=== PATIENT | female | born 1960 ===

== ENCOUNTER 2024-11-16 18:27 | Emergency (ER) | payer OTHER, SELFPAY ==
[2024-11-16] VITALS (18 sets, daily range): BP systolic 137–174; BP diastolic 56–80; PULSE 67–79; RESP 13–26; TEMP 36.6; O2SAT 96–100; BMI 29.0
--- NOTE | 2024-11-16 18:28 | EKG_ITS ---
[address] [address] Test Date: 2024-11-16 Pat Name: Xin Couch Department: Room: Gender: Female [employer] Security Architect: DAYNA : 1960 Requested By: Order Number: [id number] Reading MD: Ian Singletary Measurements Intervals [place] Rate: 71 P: 36 NC: 132 QRS: 66 QRSD: 90 T: 62 QT: 410 QTc: 445 Interpretive Statements Normal sinus rhythm Electronically Signed On 11-17-2024 10:19:31 PDT by Ian Singletary
--- NOTE | 2024-11-16 18:28 | DI.RAD.S_ITS ---
PROCEDURE: XR CHEST 1V INDICATIONS: Chest Pain TECHNIQUE: One view of the chest was acquired. COMPARISON: [facility], CR, XR CHEST 2 VIEWS, 01/26/2024, 9:31. FINDINGS: Surgical changes and devices: None. Lungs and pleura: Lungs are clear. No pleural effusions or pneumothorax. Mediastinum: Mediastinal contours appear normal. Heart size is normal. Bones and chest wall: No suspicious bony lesions. Overlying soft tissues appear unremarkable. IMPRESSION: No acute pulmonary process. Dictated by: Savanna Yoo M.D. on 11/16/2024 at 19:01 Approved by: Savanna Yoo M.D. on 11/16/2024 at 19:01
[2024-11-16 18:52] LABS: Add Manual Diff / Slide Review NO; Hematocrit 33.8 % (36-46); Hemoglobin 11.5 g/dL (12.0-16.0); Lymphocytes Absolute Auto 2800 /uL (1100-4500); Mean Corpuscular HGB Conc 34.2 % (30-36); Mean Corpuscular Hemoglobin 31.9 PG (26-34); Mean Corpuscular Volume 93.4 fL (80-100); Platelet Count 234 X10^3/uL (150-400)
[2024-11-16 18:59] LABS: INR 0.9 (0.9-1.3); Prothrombin Time 10.7 SECONDS (9.4-12.5)
[2024-11-16 19:02] LABS: PTT Partial Thromboplastin Tim 19 SECONDS (25.1-36.5)
[2024-11-16 19:04] LABS: Alanine Aminotransferase 17 IU/L (<35); Albumin 4.6 g/dL (3.5-5.0); Albumin Globulin Ratio 1.4 (1.0-2.8); Alkaline Phosphatase 92 U/L (38-126); Blood Urea Nitrogen 12 mg/dL (7-17); Calcium 8.7 mg/dL (8.4-10.2); Carbon Dioxide 25 mmol/L (22-32); Chloride 104 mmol/L (98-107); Creatine Kinase 77 U/L (30-135); Estimated Glomerular Filt Rate > 60 mL/min (>60); Globulin 3.3 g/dL (1.7-4.1); Glucose 105 mg/dL (70-99); HEMOLYSIS < 15 (0-50); Lipase 155 U/L (23-300); Magnesium 1.9 mg/dL (1.6-2.3); Potassium 3.5 mmol/L (3.4-5.1); Sodium 139 mmol/L (137-145); Total Protein 7.9 g/dL (6.3-8.2)
[2024-11-16 19:15] LABS: NT-proBNP (BNP-Adult 18+) 252 pg/mL (<125); Troponin I < 0.012 ng/mL (0.01-0.034)
--- NOTE | 2024-11-16 19:37 | ED.NAVMDI ---
HPI - Nausea/Vomiting/Diarrhea General Chief complaint: Nausea/Vomiting/Diarrhea Stated complaint: N/V + syncope Time Seen by Provider: 11/16/24 19:36 Source: patient and EMS Mode of arrival: EMS History of Present Illness HPI Narrative: Patient is a 64-year-old female no significant past medical history comes into the ED via EMS for evaluation of syncope. She states that she ate a crab sandwich at 5:00 p.m. started developing some abdominal pain nausea and vomiting. According to medics patient did receive Zofran on route, she stated that she felt like her blood sugar was low however blood sugar was 97, was also complaining of some blurry vision as well as shaking but at time of evaluation patient stating that she just feels a little weak and is complaining of some cramping abdominal pain no focal deficits NIH of 0, she denies any shortness of breath chest pain or any other symptoms during the episode. Related Data Previous Rx's ?Medication ?Instructions ?Recorded calcium carbonate (Tums) 1,000 mg (5 x 200 mg calcium (500 03/15/17 mg)) PO TID #30 tabs cholecalciferol (vitamin D3) 50 1 tab PO QDAY #30 tabs 03/15/17 mcg (2,000 unit) tablet (Vitamin D3) magnesium oxide 400 mg (241.3 mg 400 mg PO QDAY #30 tabs 03/15/17 magnesium) tablet ondansetron 4 mg disintegrating 4 mg PO BID 1 week #14 tabs 11/16/24 tablet Allergies Allergy/AdvReac Type Severity Reaction Status Date / Time Influenza Virus Vaccines Allergy Unknown Verified 11/16/24 18:28 (INFLUENZA VIRUS VACCINES) Opioids - Morphine Analogues Allergy Unknown Verified 11/16/24 18:28 (OPIOIDS - MORPHINE ANALOGUES) Sulfa (Sulfonamide Allergy Unknown Verified 11/16/24 18:28 Antibiotics) (SULFA (SULFONAMIDE ANTIBIOTICS)) Review of Systems Review of Systems Narrative: General: Denies fever, chills, weight loss HEENT: Denies headache, eye drainage, eye irritation, head trauma, sore throat, voice change Cardiovascular: Denies any chest pain, palpitations, tachycardia Respiratory: Denies any shortness of breath, cough, wheeze, stridor GI/: Denies any abdominal pain, nausea, vomiting, diarrhea, bright red blood per rectum, melanotic stools, urinary frequency, urinary retention, dysuria, hematuria MSK: Denies any joint pain, muscle pains, swelling Skin: Denies any rashes, lesions, discoloration Neuro: Denies any headache, lightheadedness, dizziness, fainting, weakness Psych: Denies SI/HI Patient History Social History Smoking Status: Never smoker Smoking Status: Never smoker Exam Narrative Exam Narrative: General: Cooperative, well-developed, not in acute distress HEENT: Normocephalic, atraumatic, PERRLA, normal sclera, eyelids normal Neck: Active full range of motion, atraumatic Chest: Normal to inspection, negative crepitus, no overlying erythema ecchymosis Respiratory: Normal respiratory effort, not in acute respiratory distress, clear to auscultation bilaterally negative cough, wheeze, tachypnea, rhonchi, rales Cardiology: Regular rate rhythm negative gallop, murmur, rubs GI/: No tenderness to palpation, soft, non rigid, normal to inspection, exam deferred MSK: Full active range of motion in all 4 extremities, atraumatic, no tenderness to palpation of any bony prominences Skin: No rashes or lesions noted Neuro: Alert awake oriented x3, moves all 4 extremities spontaneously, cranial nerves intact, able to answer all questions appropriately follows commands appropriately Psych: Cooperative, negative suicidal or homicidal ideations Initial Vital Signs Initial Vital Signs: Vital Signs Pulse Rate 77 11/16/24 18:24 Pulse Oximetry 100 11/16/24 18:24 Course Orders Ordered: ED Orders 11/16/24 18:28 XR chest 1V Stat EKG-12 Lead Stat 11/16/24 18:45 Complete Blood Count AUTO DIFF Stat Comprehensive Metabolic Panel Stat Lipase Stat Magnesium Stat NT-proBNP (BNP-Adult 18+) Stat PTT Partial Thromboplastin [place] Stat Prothrombin Time INR Stat Troponin & CK Cardiac Panel Stat 11/16/24 19:43 CT abdomen pelvis w con Stat 11/16/24 21:00 Urinalysis and Microscopic Stat Discontinued Medications Aspirin (Aspirin 81 Mg Chew Tab) 324 mg PO NOW ONE Stop: 11/16/24 18:29 Last Admin: 11/16/24 19:19 Dose: Not Given Documented By: ANTONY Famotidine (Famotidine 20 Mg/2 Ml Vial) 20 mg IV NOW ONE Stop: 11/16/24 19:44 Last Admin: 11/16/24 19:55 Dose: 20 mg Documented By: ANTONY Sodium Chloride (Normal Saline 0.9%) 1,000 mls @ 1,000 mls/hr IV BOLUS ONE Stop: 11/16/24 20:42 Last Infusion: 11/16/24 20:55 Dose: Infused Documented By: Admin: 11/16/24 19:54 Dose: 1,000 mls/hr Documented By: ANTONY Ondansetron HCl (Ondansetron 4 Mg/2 Ml Inj) 4 mg IV NOW ONE Stop: 11/16/24 19:44 Last Admin: 11/16/24 19:54 Dose: 4 mg Documented By: ANTONY Vital Signs Vital signs: Vital Signs - 8 hr 11/16/24 18:24 11/16/24 18:25 11/16/24 18:25 Temperature Pulse Rate 77 77 Respiratory Rate Blood Pressure 174/80 H Pulse Oximetry 100 99 Oxygen Delivery Method 11/16/24 18:28 11/16/24 18:30 11/16/24 18:30 Temperature 97.9 F Pulse Rate 78 70 Respiratory Rate 18 25 H Blood Pressure 174/80 H 153/70 H Pulse Oximetry 100 100 Oxygen Delivery Method Room Air 11/16/24 18:45 11/16/24 18:45 11/16/24 19:00 Temperature Pulse Rate 71 Respiratory Rate 24 Blood Pressure 151/67 H 145/69 H Pulse Oximetry 98 Oxygen Delivery Method 11/16/24 19:00 11/16/24 19:15 11/16/24 19:15 Temperature Pulse Rate 72 68 Respiratory Rate 22 20 Blood Pressure 141/70 H Pulse Oximetry 97 99 Oxygen Delivery Method Room Air 11/16/24 19:30 11/16/24 19:30 11/16/24 19:46 Temperature Pulse Rate 69 Respiratory Rate 20 Blood Pressure 137/69 155/69 H Pulse Oximetry 98 Oxygen Delivery Method 11/16/24 19:46 11/16/24 20:00 11/16/24 20:00 Temperature Pulse Rate 69 67 Respiratory Rate 21 20 Blood Pressure 150/71 H Pulse Oximetry 98 100 Oxygen Delivery Method Room Air 11/16/24 20:20 11/16/24 20:20 Temperature Pulse Rate 73 Respiratory Rate 23 Blood Pressure 152/67 H Pulse Oximetry 99 Oxygen Delivery Method Room Air MDM - Nausea/Vomiting/Diarrhea Differential Diagnosis Differential diagnosis: Likely traveler's diarrhea, food poisoning, gastroenteritis, drug-induced nausea and vomiting, dehydration and other (ACS, pneumonia, electrolyte abnormality) Lab Data 11/16/24 18:45 11/16/24 18:45 Labs: Lab Results 11/16/24 11/16/24 Range/Units 18:45 21:00 WBC 5.3 (4.5-11.0) X10^3/uL RBC 3.62 L (4.0-5.2) X10^6/uL Hgb 11.5 L (12.0-16.0) g/dL Hct 33.8 L (36-46) % MCV 93.4 (80-100) fL MCH 31.9 (26-34) PG MCHC 34.2 (30-36) % RDW 14.8 (11.6-14.8) % Plt Count 234 (150-400) X10^3/uL Neut % (Auto) 39.6 L (50-75) % Lymph % (Auto) 53.0 H (25-40) % Hendry % (Auto) 5.9 (3-14) % Eos % (Auto) 1.0 L (2-4) % Baso % (Auto) 0.5 (0-2) % Neut # (Auto) 2100 (6286-3287) /uL Lymph # (Auto) 2800 (5001-5014) /uL [place] # (Auto) 300 (0-900) /uL Eos # (Auto) 100 (0-450) /uL Baso # (Auto) 0 (0-100) /uL PT 10.7 (9.4-12.5) SECONDS INR 0.9 (0.9-1.3) APTT 19 L (25.1-36.5) SECONDS Sodium 139 (137-145) mmol/L Potassium 3.5 (3.4-5.1) mmol/L Chloride 104 (98-107) mmol/L Carbon Dioxide 25 (22-32) mmol/L BUN 12 (7-17) mg/dL Creatinine 0.90 (0.52-1.04) mg/dL Estimated GFR > 60 (>60) mL/min BUN/Creatinine Ratio 13.3 (6-22) Glucose 105 H (70-99) mg/dL Calcium 8.7 (8.4-10.2) mg/dL Magnesium 1.9 (1.6-2.3) mg/dL Total Bilirubin 0.7 (0.2-1.3) mg/dL AST 35 (14-36) IU/L ALT 17 (<35) IU/L Alkaline Phosphatase 92 (38-126) U/L Total Creatine Kinase 77 (30-135) U/L Troponin I < 0.012 (0.01-0.034) ng/mL NT-Pro-B Natriuret Pep 252 H (<125) pg/mL Total Protein 7.9 (6.3-8.2) g/dL Albumin 4.6 (3.5-5.0) g/dL Globulin 3.3 (1.7-4.1) g/dL Albumin/Globulin Ratio 1.4 (1.0-2.8) Lipase 155 (23-300) U/L Urine Color Yellow Urine Appearance Clear Urine pH 6.5 (4.5-8.0) Ur Specific Trout <=1.005 (1.000-1.035) Urine Protein Negative (Negative) Urine Glucose (UA) Negative (Negative) g/dL Urine Ketones Negative (NEGATIVE) Urine Occult Blood Negative (Negative) Urine Nitrate Negative (Negative) Urine Bilirubin Negative (NEGATIVE) Urine Urobilinogen 0.2 (0.2) E.U./dL Ur Leukocyte Esterase Negative (NEGATIVE) Urine RBC None seen (0-5/HPF) Urine WBC 0-1/hpf (0-5/HPF) Ur Squamous Epith Cells 0-1 /hpf (0-5/HPF) Urine Bacteria None seen (None) Ur Culture Indicated? Cult not indicated Vol Urine Centrifuged 10ml (spun) Imaging Data Chest x-ray: Radiologist's Impression: [address] [address] XRay Report Signed Patient: Xin Couch MR#: [id number] : 1960 Acct:[id number] Age/Sex: 64 / F Date of Service: 11/16/24 Loc: ED Accession Number: [id number] Procedure: XR chest 1V Ordering Provider: Maninder Alfaro D.O. PROCEDURE: XR CHEST 1V INDICATIONS: Chest Pain TECHNIQUE: One view of the chest was acquired. COMPARISON: [facility], CR, XR CHEST 2 VIEWS, 01/26/2024, 9:31. FINDINGS: Surgical changes and devices: None. Lungs and pleura: Lungs are clear. No pleural effusions or pneumothorax. Mediastinum: Mediastinal contours appear normal. Heart size is normal. Bones and chest wall: No suspicious bony lesions. Overlying soft tissues appear unremarkable. IMPRESSION: No acute pulmonary process. CT scan - abdomen/pelvis: Radiologist's Impression: [address] [address] [address] Scan Report Signed Patient: Xin Couch MR#: [id number] : 1960 Acct:[id number] Age/Sex: 64 / F Date of Service: 11/16/24 Loc: ED Accession Number: [id number] Procedure: CT abdomen pelvis w con Ordering Provider: Maninder Alfaro D.O. PROCEDURE: CT ABDOMEN PELVIS W CON INDICATIONS: n/v/d abd pain TECHNIQUE: After the administration of intravenous contrast, axial sections acquired from the lung bases to the pubic symphysis. Coronal and sagittal reformats were performed. For radiation dose reduction, the following was used: automated exposure control, adjustment of mA and/or kV according to patient size. COMPARISON: None. FINDINGS: Image quality: Diagnostic. Lower Chest: No significant findings. ABDOMEN: Liver: No solid mass. Gallbladder: Absent. Biliary ducts: No biliary dilation. Pancreas: No ductal dilation. Spleen: Size is within normal limits. Adrenal Glands: No adrenal nodules. Kidneys and Ureters: No hydronephrosis. No solid mass. No complex renal cystic lesion which requires follow up. Stomach and Bowel: Normal colonic caliber, without significant wall thickening. Normal appendix. No significant diverticular disease. Fecal debris within the small bowel. Peritoneum: No abnormal intraperitoneal fluid. No free air. Ventral Wall: No significant ventral hernia. Abdominal Nodes: No retroperitoneal or mesenteric adenopathy by size criteria. Vessels: Aorta and inferior vena cava are normal in size. PELVIS: Pelvic Organs: Unremarkable. Bladder: No bladder wall thickening, accounting for underdistention. Pelvic Nodes: No enlarged lymph nodes. Miscellaneous: No inguinal hernias are seen. Bones: No aggressive osseous abnormality. Grade 1 anterolisthesis of L4 on L5 due to facet arthrosis. IMPRESSION: No acute abnormality. Normal appendix. No diverticular disease. Cholecystectomy and no hydronephrosis. Fecal debris within the small-bowel, usually indicating small intestinal bacterial overgrowth versus slow transit. ECG Data Interpretation: EKG interpreted by ED physician, sinus 71 beats per minute QTC 445, QRS MN interval within normal limits, nonspecific ST changes no STEMI MDM Narrative Medical decision making narrative: Patient is a 64-year-old female without any significant past medical history presenting via EMS for evaluation of nausea vomiting diarrhea syncope. States that she ate a crab salad from the market and states that within an hour she started having nausea vomiting diarrhea, she states that she ended up passing out but did not hit her head. She states that she feels better now, medics did give her Zofran, she states that on the way she did feel little tremulous blurry vision but this is completely resolved. She states that she is just feeling some cramping abdominal pain and some nausea. She has no focal deficits. She has no traumatic injuries to note. Patient's EKG nonischemic in nature, patient had lab work imaging. Chest x-ray without any acute cardiopulmonary abnormality, patient without leukocytosis Chem panel unremarkable troponin negative. Urinalysis not consistent with acute urinary tract infection, CT abdomen and pelvis without any acute findings, patient's symptoms more likely secondary to gastroenteritis, patient is sent home with symptomatic relief instructed to follow up with the primary care in outpatient setting verbalized understanding of this and agrees to being discharged home with outpatient follow up Discharge Plan Departure Patient Disposition: Home Clinical Impression: Gastroenteritis Instructions: DI for Viral Gastroenteritis -- Adult Activity Restrictions/Additional Instructions: You may take life-rhe-yufuaae antidiarrheal medication as needed for your symptoms Please follow up with your primary care doctor Please read the discharge instructions sheet carefully and bring all papers to all doctor follow-up visits, as it may contain information that your doctor may want to see. Disease processes change and evolve, if your symptoms worsen or if you develop any new symptoms that are concerning to you please return for evaluation. Your evaluation today does not show any evidence of any life-threatening/serious illnesses requiring admission to the hospital or surgery. Please follow-up with your doctor for re-evaluation in approximately 1 day. Seek immediate medical attention for any worrisome symptoms. *If you do not have a primary care provider please contact the [facility] Resource line at [phone]. They will ask some questions about your medical history and help get you set up with a doctor in the community. Prescriptions: New ondansetron 4 mg tablet,disintegrating 4 mg PO BID 7 Days Qty: 14 0RF No Action calcium carbonate [Tums] 500 MG tablet,chewable 1,000 mg PO TID Qty: 30 0RF magnesium oxide 400 MG tablet 400 mg PO QDAY Qty: 30 0RF cholecalciferol (vitamin D3) [Vitamin D3] 2,000 UNIT tablet 1 tab PO QDAY Qty: 30 0RF Referrals: Baudilio Szymanski MD [Primary Care Provider, Physical Medicine and Rehab] Stand Alone Forms: Patient Portal/API
--- NOTE | 2024-11-16 19:43 | DI.CT.S_ITS ---
PROCEDURE: CT ABDOMEN PELVIS W CON INDICATIONS: n/v/d abd pain TECHNIQUE: After the administration of intravenous contrast, axial sections acquired from the lung bases to the pubic symphysis. Coronal and sagittal reformats were performed. For radiation dose reduction, the following was used: automated exposure control, adjustment of mA and/or kV according to patient size. COMPARISON: None. FINDINGS: Image quality: Diagnostic. Lower Chest: No significant findings. ABDOMEN: Liver: No solid mass. Gallbladder: Absent. Biliary ducts: No biliary dilation. Pancreas: No ductal dilation. Spleen: Size is within normal limits. Adrenal Glands: No adrenal nodules. Kidneys and Ureters: No hydronephrosis. No solid mass. No complex renal cystic lesion which requires follow up. Stomach and Bowel: Normal colonic caliber, without significant wall thickening. Normal appendix. No significant diverticular disease. Fecal debris within the small bowel. Peritoneum: No abnormal intraperitoneal fluid. No free air. Ventral Wall: No significant ventral hernia. Abdominal Nodes: No retroperitoneal or mesenteric adenopathy by size criteria. Vessels: Aorta and inferior vena cava are normal in size. PELVIS: Pelvic Organs: Unremarkable. Bladder: No bladder wall thickening, accounting for underdistention. Pelvic Nodes: No enlarged lymph nodes. Miscellaneous: No inguinal hernias are seen. Bones: No aggressive osseous abnormality. Grade 1 anterolisthesis of L4 on L5 due to facet arthrosis. IMPRESSION: No acute abnormality. Normal appendix. No diverticular disease. Cholecystectomy and no hydronephrosis. Fecal debris within the small-bowel, usually indicating small intestinal bacterial overgrowth versus slow transit. Dictated by: Dean Weston M.D. on 11/16/2024 at 20:36 Approved by: Dean Weston M.D. on 11/16/2024 at 20:39
[2024-11-16] MEDS: ONDANSETRON 4 MG/2 ML INJ IV (19:54)
[2024-11-16] MEDS: SODIUM CHLORIDE 0.9% 1,000 ML 1000 ML IV (19:54)
[2024-11-16] MEDS: FAMOTIDINE 20 MG/2 ML VIAL IV (19:55)
[2024-11-16 21:15] LABS: Appearance Urine UA CLEAR; Bilirubin Urine UA NEGATIVE (NEGATIVE); Color Urine UA YELLOW; Glucose Urine UA NEGATIVE (Negative); Ketones Urine UA NEGATIVE (NEGATIVE); Leukocyte Esterase Urine UA NEGATIVE (NEGATIVE); Nitrite Urine UA NEGATIVE (Negative); Occult Blood Urine UA NEGATIVE (Negative); Protein Urine UA NEGATIVE (Negative); Specific Gravity Urine UA <=1.005 (1.000-1.035); Urobilinogen Urine UA 0.2 E.U./dL (0.2)
[2024-11-16 21:23] LABS: pH Urine UA 6.5 (4.5-8.0)
[2024-11-16 21:24] LABS: Culture Indicated Urine Cult Not Indicated
== END 2024-11-16 22:03 | disposition home or self-care (01) ==
PROVIDERS: Emergency Provider Student in an Organized Health Care Education/Training Program; Family Provider Preventive Medicine Public Health & General Preventive Medicine; PCP Preventive Medicine Public Health & General Preventive Medicine
DX: K52.9 Noninfective gastroenteritis and colitis, unspecified (principal); R07.9 Chest pain, unspecified; R10.9 Unspecified abdominal pain; R11.2 Nausea with vomiting, unspecified; H53.8 Other visual disturbances; R29.700 NIHSS score 0
CPT/HCPCS: 71045; 74177; 80053; 81001; 82550; 83690; 83735; 83880; 84484; 85025; 85610; 85730; 93005; 96361; 96374; 96375; 99284; J2405